=== PATIENT | male | born 2000 | race Caucasian/White ===

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

== ENCOUNTER 2021-04-08 15:14 | Emergency (ER) | payer OTHER ==
--- OUTSIDE RECORDS SUMMARY | 2021-04-08 15:17 | XMS REPORT | Continuity of Care Document ---
:2000 Author Organization [facility] t Address [address] [place] [address] [place] [id number] Care Team Providers Name Role Phone Tadeo Attending Clinician [phone] Problems This patient has no known problems. Allergies, Adverse Reactions, Alerts This patient has no known allergies or adverse reactions. Medications This patient has no known medications. Procedures This patient has no known procedures. Encounters Start End Encounter Admission Attending Care Care Encounter Source Date/Time Date/Time Type Type Clinicians Facility Department ID 2021-03-20 2021-03-20 Outpatient JULISSA Piedra [facility] [id number] 00:00:00 00:00:00 Susi [id number] Results This patient has no known results.
--- NOTE | 2021-04-08 16:01 | ER ---
Nurse's Notes [facility] Name: Karthik Daniel Age: 20 yrs Sex: Male : 2000 Arrival Date: 04/08/2021 Time: 15:17 Bed Waiting Private MD: Diagnosis: Assessment: 04/08 15:50 Reassessment: PT NOT IN LOBBY. iw ED Course: 15:17 Patient arrived in ED. ds1 Administered Medications: No medications were administered Outcome: 16:00 Patient left the ED. iw Signatures: Jayashree Liriano ds1 Penny Maya, RN RN iw
[2021-04-08] MEDS ORDERED: ASCORBIC ACID 500 MG TABLET ONE (17:28)
== END 2021-04-08 16:00 | disposition left against medical advice (07) ==
LOC: ER 15:14
DX: Z02.9 Encounter for administrative examinations, unspecified (principal)

== ENCOUNTER → 2021-07-24 | Emergency (ER) | payer OTHER ==
--- OUTSIDE RECORDS SUMMARY | 2021-07-24 13:41 | XMS REPORT | Continuity of Care Document ---
:2000 Author Organization [facility] t Address [address] [place] [id number] Care Team Providers Name Role Phone WATERS_S Attending Clinician Unavailable Piedra Attending Clinician [phone] WATERS_S Admitting Clinician Unavailable Payers Payer Name Policy Type Policy Number Effective Date Expiration Date [facility] [id number] Problems This patient has no known problems. Allergies, Adverse Reactions, Alerts This patient has no known allergies or adverse reactions. Medications This patient has no known medications. Procedures This patient has no known procedures. Encounters Start End Encounter Admission Attending Care Care Encounter Source Date/Time Date/Time Type Type Clinicians Facility Department ID 2021-06-06 2021-06-06 Outpatient GE_S [facility] [id number] [place] 09:21:00 09:21:00 [facility] 2021-06-06 2021-06-06 Outpatient Ge [facility] [id number] 00:00:00 00:00:00 Susi [id number] 2021-05-23 2021-05-23 Outpatient GE_S [facility] [id number] [place] 04:27:00 04:27:00 012 [facility] 2021-04-20 2021-04-20 Outpatient GE_S [facility] [id number] [place] 02:29:00 02:29:00 909 [facility] 2021-04-20 2021[facility]04[id number]00 00:00:00 Susi [id number] 2021-03-20 2021-03-20 Outpatient WILLARD [facility] [id number] [place] 04:23:00 04:23:00 809 [facility] 2021-03-20 2021-03-20 Outpatient Piedra [facility] [id number] 00:00:00 00:00:00 Susi [id number] 2021-03-13 Outpatient WILLARD [facility] [id number] [place] 11:27:00 11:27:00 802 [facility] Results This patient has no known results.
== END ==
LOC: ER 13:38
DX: Z02.9 Encounter for administrative examinations, unspecified (principal)